=== PATIENT | female | born 1960 | race Two or more races ===

== ENCOUNTER 2016-11-09 22:29 | Emergency (ER) | payer MEDICAID ==
[2016-11-09] MEDS ORDERED: Sodium Chloride 0.9% 10 ML Syringe FLUSH PRN (23:03)
[2016-11-09] MEDS ORDERED: Sodium Chloride 0.9% 1,000 ML IV ONE (23:04)
[2016-11-09] MEDS ORDERED: Ondansetron 4 MG/2 ML SDV IVPUSH ONE (23:05)
[2016-11-10 00:33] VITALS: BP 140/59
--- NOTE | 2016-11-10 12:22 | ER ---
DATE SEEN: 11/09/2016 TIME SEEN: The patient was seen at 2255 hours. CHIEF COMPLAINT: "I feel bad, I have been sick for 4 days." Three days of fever, four days of cough and vomited 3 times yesterday and once today, mild sore throat, moderate stomachache. HISTORY OF PRESENT ILLNESS: This 56-year-old [place] woman comes in with the above symptoms. She has past medical history of rheumatoid arthritis for which she was treated with methotrexate, hypothyroidism treated with L- thyroxine. Depression, which she treated with sertraline (Zoloft) 100 mg daily and hypertension treated with hydrochlorothiazide/lisinopril 20-25 mg plus depression, BuSpar 15 mg b.i.d., and gabapentin and Neurontin for arthritis pain and discomfort. The patient is status post cholecystectomy by laparoscopic surgery. Does not drink alcohol, does not smoke, and does not use illicit drugs. REVIEW OF SYSTEMS: Negative except she is 5, para 4-1-0-4. She had her flu shot this fall. Review of systems otherwise negative. PHYSICAL EXAMINATION: VITAL SIGNS: Blood pressure 147/49, repeat blood pressure 140/59; heart rate 92, repeat heart rate 85; respirations 20; oxygen saturation 96%; temperature is 37.3 degrees centigrade. GENERAL: The patient speaks to me through her daughter, who is excellent at interpreting. The patient does understand [place]ian also, but her speech is limited. HEENT: Slightly pale conjunctivae. She has mild distress. She is not overweight, normal weight. Edentulous. She has dentures in place. No cervical adenopathy. No thyromegaly. No pharyngeal erythema. NECK: Supple. LUNGS: Clear to auscultation without rales, rhonchi, or wheezes. HEART: S1, S2. No murmur. No irregular rate and rhythm. No tachycardia. ABDOMEN: Soft. Mild guarding in the abdomen, generalized. Rebound negative. Bowel sounds normal. Completely soft. No CVA percussion tenderness. Pelvic not performed. LABORATORY FINDINGS: Complete metabolic panel is normal. Urinalysis is normal. CBC normal. ASSESSMENT: 1. Upper respiratory infection with cough. No evidence for influenza or streptococcal pharyngitis. 2. Abdominal discomfort, probably secondary to staphylococcal enterotoxin in food this evening. 3. Associated vomiting without diarrhea. PLAN: Follow up with doctor as needed in next 7 days, otherwise earlier. Ibuprofen and Tylenol [id number]. /[id number] COCO/NINFA
== END 2016-11-10 00:45 | disposition home or self-care (01) ==
LOC: FB.ED 22:29
DX: J06.9 Acute upper respiratory infection, unspecified (principal); R10.9 Unspecified abdominal pain; R11.10 Vomiting, unspecified; M06.9 Rheumatoid arthritis, unspecified; E03.9 Hypothyroidism, unspecified; F32.9 Major depressive disorder, single episode, unspecified; I10 Essential (primary) hypertension
CPT/HCPCS: 36415; 80053; 81001; 83605; 85025; 87081; 87430; 87804; 96361; 96374; 99284; J2405; J7040; J7050

== ENCOUNTER 2021-08-26 07:28 | Day surgery (SDC) | payer MEDICARE, MEDICAID ==
[2021-08-26] MEDS ORDERED: Midazolam 1 MG/ML 2 ML SDV IV ONE (07:29)
[2021-08-26] MEDS ORDERED: fentaNYL 100 MCG/2 ML SDV IV ONE (07:29)
[2021-08-26] MEDS ORDERED: Sodium Chloride 0.9% 10 ML Syringe FLUSH PRN (07:30)
[2021-08-26] MEDS: Lactated Ringers 1,000 ML IV PRN (08:45)
[2021-08-26 09:21] VITALS: BP 152/68; PULSE 82
[2021-08-26] MEDS: acetaZOLAMIDE 500 MG Cap.ER PO ONE (09:23)
== END 2021-08-26 09:44 | disposition home or self-care (01) ==
LOC: FB.SDS 07:28
PROVIDERS: ATTEND Ophthalmology
DX: H40.1132 Primary open-angle glaucoma, bilateral, moderate stage (principal); H25.813 Combined forms of age-related cataract, bilateral; H35.033 Hypertensive retinopathy, bilateral; I10 Essential (primary) hypertension; E03.9 Hypothyroidism, unspecified; M06.9 Rheumatoid arthritis, unspecified; F41.9 Anxiety disorder, unspecified; F32.A Depression, unspecified; Z79.899 Other long term (current) drug therapy; Z88.8 Allergy status to other drugs, medicaments and biological substances; Z90.49 Acquired absence of other specified parts of digestive tract; Z98.890 Other specified postprocedural states
CPT/HCPCS: 00142-QZ; A9270-GY; C1783; J2250; J3010; J7120; V2632

== ENCOUNTER 2021-10-07 06:26 | Day surgery (SDC) | payer MEDICARE, MEDICAID ==
[~2021-10-07 06:26] MED LIST: Lactated Ringers 1,000 ML IV PRN; Sodium Chloride 0.9% 10 ML Syringe FLUSH PRN; acetaZOLAMIDE 500 MG Cap.ER PO ONE
[2021-10-07] MEDS ORDERED: fentaNYL 100 MCG/2 ML SDV IV ONE (06:27)
[2021-10-07] MEDS ORDERED: Midazolam 1 MG/ML 2 ML SDV IV ONE (06:27)
[2021-10-07] MEDS ORDERED: Lactated Ringers 1,000 ML IV PRN (06:30)
[2021-10-07] MEDS ORDERED: Sodium Chloride 0.9% 10 ML Syringe FLUSH PRN (06:30)
[2021-10-07] MEDS ORDERED: Tetracaine HCl/PF 0.5% 4 ML Bottle ONE (08:04)
[2021-10-07] MEDS ORDERED: Brimonidine 0.2% Ophth Soln 5 ML Bottle ONE (08:21)
[2021-10-07] MEDS ORDERED: Dexamethasone/Tobramycin 0.1-0.3% Ophth Susp 2.5 ML Bottle ONE (08:21)
[2021-10-07] MEDS ORDERED: acetaZOLAMIDE 500 MG Cap.ER PO ONE (08:30)
[2021-10-07 08:31] VITALS: PULSE 77
[2021-10-07 08:56] VITALS: BP 152/71
== END 2021-10-07 09:15 | disposition home or self-care (01) ==
LOC: FB.SDS 06:26
PROVIDERS: ATTEND Ophthalmology
DX: H25.813 Combined forms of age-related cataract, bilateral (principal); H40.1132 Primary open-angle glaucoma, bilateral, moderate stage; H35.033 Hypertensive retinopathy, bilateral; I10 Essential (primary) hypertension; E03.9 Hypothyroidism, unspecified; F41.9 Anxiety disorder, unspecified; F32.A Depression, unspecified; Z91.018 Allergy to other foods; Z90.49 Acquired absence of other specified parts of digestive tract; Z98.890 Other specified postprocedural states; Z79.890 Hormone replacement therapy; Z79.899 Other long term (current) drug therapy
CPT/HCPCS: 00142-QZ; A9270-GY; C1783; J2250; J3010; V2632

== ENCOUNTER 2025-01-18 23:35 | Emergency (ER) | payer MEDICARE, MEDICAID ==
[2025-01-18] MEDS ORDERED: Sodium Chloride 0.9% 10 ML Syringe FLUSH PRN (23:59)
[2025-01-19] MEDS: Ondansetron 4 MG/2 ML SDV IVPUSH ONE (00:06)
[2025-01-19] MEDS: Ketorolac 30 MG/ML SDV IVPUSH ONE (00:07)
[2025-01-19 00:14] LABS: BASOPHILS ABSOLUTE AUTO 0.1 x10-3/uL (0.0-0.1); BASOPHILS PERCENT AUTO 0.7 % (0.2-1.5); EOSINOPHILS ABSOLUTE AUTO 0.3 x10-3/uL (0.0-0.8); EOSINOPHILS PERCENT AUTO 2.8 % (0.6-8.1); LYMPHOCYTES ABSOLUTE AUTO 3.9 x10-3/uL (1.0-4.4); LYMPHOCYTES PERCENT AUTO 41.7 % (18.4-52.1); MEAN PLATELET VOLUME 8.1 fL (7.1-12.4); MONOCYTES ABSOLUTE AUTO 0.7 x10-3/uL (0.3-1.0); MONOCYTES PERCENT AUTO 7.4 % (4.4-15.7); NEUTROPHILS ABSOLUTE AUTO 4.4 x10-3/uL (1.5-6.3); NEUTROPHILS PERCENT AUTO 47.4 % (30.8-76.2); PLATELET COUNT,PLT 263 x10(3)uL (151-488); RED BLOOD CELL COUNT 3.94 x10(6)uL (3.60-5.20); RED CELL DISTRIBUTION WIDTH 13.6 % (12.3-16.5); WHITE BLOOD CELL COUNT,WBC 9.4 x10-3/uL (3.0-10.3)
[2025-01-19 00:27] LABS: BLOOD UREA NITROGEN,BUN 14 mg/dL (7-18); CARBON DIOXIDE,CO2 28 mmol/L (21-32); CHLORIDE,CL 95 mmol/L (100-110); CREATININE 1.3 mg/dL (0.55-1.02); EST CRCL DRUG DOSING (CG) 35.03 mL/min; ESTIMATED GFR 46 mL/min (>60); GLUCOSE RANDOM 91 mg/dL (80-116); POTASSIUM,K 3.4 mmol/L (3.5-5.3); SODIUM,NA 132 mmol/L (135-145)
[2025-01-19 01:27] VITALS: BP 132/49; PULSE 53
== END 2025-01-19 01:23 | disposition home or self-care (01) ==
LOC: FB.ED 23:35
DX: R00.1 Bradycardia, unspecified (principal); R51.9 Headache, unspecified; R42 Dizziness and giddiness; I10 Essential (primary) hypertension; K21.9 Gastro-esophageal reflux disease without esophagitis; E03.9 Hypothyroidism, unspecified; Z90.49 Acquired absence of other specified parts of digestive tract; Z79.890 Hormone replacement therapy; Z79.899 Other long term (current) drug therapy
CPT/HCPCS: 36415; 80048; 84484; 85025; 93005; 93010; 96361; 96374; 96375; 99284; 99285; J1885; J2405; J7030